=== PATIENT | male | born 1965 | race Caucasian/White ===

== ENCOUNTER 2017-07-31 17:11 | Emergency (ER) | payer BC ==
[~2017-07-31] VITALS: Ht 170.2 cm; Wt 87.7 kg
[2017-07-31 17:44] LABS: BASO % 0.3 % (0.0-1.0); EOS # 0.1 K/mm3 (0.0-0.50); EOS % 0.4 % (0.0-3.0); LARGE UNSTAINED CELL # 0.1 K/mm3 (0.0-0.4); LARGE UNSTAINED CELL % 0.6 % (0.0-4.0); LYMPH # 1.4 K/mm3 (1.5-4.5); LYMPH % 8.9 % (24.0-44.0); MEAN CORPUSCULAR HEMOGLOBIN 33.1 pg (27.0-33.0); MEAN CORPUSCULAR HGB CONC 35.1 g/dl (32.0-36.5); MEAN CORPUSCULAR VOLUME 94.3 fl (80.0-96.0); MONO # 0.5 K/mm3 (0.0-0.8); NEUTROPHILS # 13.2 K/mm3 (1.8-7.7); NEUTROPHILS % 86.8 % (36.0-66.0); PLATELET COUNT, AUTOMATED 241 k/mm3 (150-450); RED CELL DISTRIBUTION WIDTH 12.3 % (11.5-14.5); WHITE BLOOD COUNT 15.2 K/mm3 (4.0-10.0)
[2017-07-31] MEDS: KETOROLAC 30 MG/ML VIAL (J1885) IV ONE ×2 (17:45→18:39)
[2017-07-31] MEDS ORDERED: NS 1,000 ML IV ONE (17:45)
[2017-07-31] MEDS ORDERED: ONDANSETRON 4MG/2ML VIAL (J2405) IV ONE ×2 (17:45→18:15)
[2017-07-31] MEDS: MORPHINE 4 MG/ML 1ML SYRINGE IV PRN ×2 (17:46→18:45)
[2017-07-31] MEDS ORDERED: ISOVUE-370 76% 100ML VIAL (Q9967) As Ordered ONE (17:55)
[2017-07-31 17:58] LABS: INR 1.04
[2017-07-31 18:06] LABS: ALBUMIN 3.9 GM/DL (3.2-5.2); ALBUMIN/GLOBULIN RATIO 1.11 (1.00-1.93); ALKALINE PHOSPHATASE 60 U/L (45-117); ALT/SGPT 28 U/L (12-78); AMYLASE 60 U/L (25-115); ANION GAP 7 MEQ/L (8-16); AST/SGOT 12 U/L (15-37); BILIRUBIN,DIRECT < 0.1 MG/DL (0.0-0.2); BILIRUBIN,TOTAL 0.5 MG/DL (0.2-1.0); BLOOD UREA NITROGEN 16 MG/DL (7-18); CALCIUM LEVEL 8.8 MG/DL (8.5-10.1); CARBON DIOXIDE LEVEL 28 MEQ/L (21-32); CHLORIDE LEVEL 107 MEQ/L (98-107); GLOMERULAR FILTRATION RATE > 60.0 (>56); GLUCOSE, FASTING 150 MG/DL (70-105); POTASSIUM SERUM 4.1 MEQ/L (3.5-5.1); SODIUM LEVEL 142 MEQ/L (136-145); TOTAL PROTEIN 7.4 GM/DL (6.4-8.2)
[2017-07-31] MEDS ORDERED: MORPHINE 2 MG/ML 1ML SYRINGE IV ONE (18:15)
[2017-07-31] MEDS ORDERED: MORPHINE 4 MG/ML 1ML SYRINGE IV ONE (18:15)
--- NOTE | 2017-07-31 18:23 | REP ---
Clinical: Chest and abdominal pain radiating to the back. Rule out aortic aneurysm/dissection. Technique: Axial contrast enhanced images from the lung bases to the pubic symphysis using 100 ml Isovue 370 intravenous contrast material with coronal and sagittal re-formations. Findings: The visualized lower thoracic and abdominal aorta including major branch vessels through the level of the bifurcation to iliac arteries is normal and without evidence for aneurysm, dissection, or significant atherosclerotic changes. The right kidney demonstrates mild perinephric stranding and mild hydroureteronephrosis with a 2 mm obstructing calculus in the distal right ureter (image 131). No definite further urinary tract calcifications are appreciated. Liver, spleen, pancreas, gallbladder, bilateral adrenal glands and left kidney are normal. The enteric system is without obstruction or acute inflammatory process. Normal terminal ileum and appendix are identified in the right lower quadrant. Pelvis demonstrates normal bladder and age appropriate prostate/seminal vesicles. No pelvic fluid or ascites. No free air. No adenopathy. Lung bases are clear. Visualized heart and pericardium are normal. Impression: 1. Mild/early acute obstructive uropathy involving the right kidney with a 2 mm calculus in the distal right ureter. 2. Normal aorta and no evidence for dissection or aneurysm. 3. No further acute abdominopelvic pathology appreciated. Signed by Austin Colon MD 07/31/2017 06:14 P
[2017-07-31] MEDS ORDERED: TAMSULOSIN 0.4 MG CAP PO ONE (19:00)
--- NOTE | 2017-07-31 19:45 | ECGEPIP ---
Stationary ECG Study [facility] - ED Test Date: 2017-07-31 Pat Name: MANI MCARTHUR Department: Room: - Gender: M Picture Hanger: tricia : 1965 Requested By: Evelyn Edmonds Order Number: [id number] Reading MD: Evelyn Edmonds Measurements Intervals Arnett Rate: 70 P: 17 DE: 137 QRS: 18 QRSD: 106 T: 8 QT: 386 QTc: 417 Interpretive Statements SINUS RHYTHM WITH SINUS ARRHYTHMIA SHORTENED DE INTERVAL NO OLD ECG FOR COMPARISON Electronically Signed On 07-31-2017 19:45:33 EDT by Evelyn Edmonds
[2017-07-31] MEDS ORDERED: FLOM5CAP PO (20:38)
[2017-07-31 20:42] VITALS: BP 137/80
[2017-07-31] MEDS ORDERED: NORCO 5/325MG TABLET (BULK FOR ED) PO ONE (20:45)
== END 2017-07-31 21:01 | disposition home or self-care (01) ==
LOC: M ED 17:11
DX: N20.1 Calculus of ureter (principal)
CPT/HCPCS: 36415; 74177; 80048; 80076; 81001; 82150; 82550; 82553; 83605; 83690; 85025; 85610; 85730; 87040; 87086; 93005; 93041; 96361; 96374; 96375; 96376; 99285; J1885; J2405; Q9967

== ENCOUNTER → 2024-01-13 | Outpatient (CLI) | payer OTHER ==
[~2024-01-13] MED LIST: FLOM0.4C39 PO
[2024-01-13 09:53] LABS: HEMATOCRIT 46.5 % (42.0-52.0); MEAN CORPUSCULAR HEMOGLOBIN 32.1 pg (27.0-33.0); MEAN CORPUSCULAR HGB CONC 34.4 g/dl (32.0-36.5); MEAN CORPUSCULAR VOLUME 93.4 fl (80.0-96.0); PLATELET COUNT, AUTOMATED 249 10^3/uL (150-450); RED BLOOD COUNT 4.98 10^6/uL (4.30-6.10)
[2024-01-13 10:02] LABS: APPEARANCE, URINE CLEAR (CLEAR); BACTERIA, URINE AUTO NEGATIVE (NEGATIVE); BILIRUBIN, URINE AUTO NEGATIVE (NEGATIVE); BLOOD, URINE BLOOD NEGATIVE (NEGATIVE); COLOR, URINE YELLOW (YELLOW); GLUCOSE, URINE (UA) AUTO 3+ mg/dL (NEGATIVE); KETONE, URINE AUTO 1+ mg/dL (NEGATIVE); LEUKOCYTE ESTERASE, URINE AUTO NEGATIVE (NEGATIVE); MUCUS, URINE SMALL (NEGATIVE); NITRITE, URINE AUTO NEGATIVE (NEGATIVE); PROTEIN, URINE AUTO NEGATIVE (NEGATIVE); RBC, URINE AUTO 0 /HPF (0-3); SPECIFIC GRAVITY URINE AUTO 1.031 (1.002-1.035); SQUAMOUS EPITHELIAL CELL UR AU 0 /HPF (0-6); UROBILINOGEN, URINE AUTO 0.2 mg/dL (0.0-2.0); WBC, URINE AUTO 0 /HPF (0-3)
[2024-01-13 10:21] LABS: ALKALINE PHOSPHATASE 71 U/L (46-116); ALT/SGPT 15 U/L (7.0-40); AST/SGOT < 8 U/L (<34); BILIRUBIN,TOTAL 0.6 MG/DL (0.3-1.2); BLOOD UREA NITROGEN 20 MG/DL (9-23); CALCIUM LEVEL 9.4 MG/DL (8.5-10.1); CARBON DIOXIDE LEVEL 27 MMOL/L (20-31); CHLORIDE LEVEL 103 MMOL/L (98-107); CREATININE FOR GFR 0.64 MG/DL (0.70-1.30); GLOMERULAR FILTRATION RATE > 60.0 (>56); GLUCOSE, FASTING 306 MG/DL (60-100); POTASSIUM SERUM 5.5 MMOL/L (3.5-5.1); SODIUM LEVEL 134 MMOL/L (136-145); TOTAL PROTEIN 6.8 G/DL (5.7-8.2)
[2024-01-13 10:29] LABS: PROSTATIC SPECIFIC AG MONITOR 1.52 NG/ML (< 4.00)
== END ==
LOC: M LAB 08:26
PROVIDERS: ATTEND Physician Assistant
DX: Z00.01 Encounter for general adult medical examination with abnormal findings (principal); R35.1 Nocturia